=== PATIENT | male | born 1980 | race African-American/Black ===

== ENCOUNTER 2019-08-11 08:00 | Inpatient (IN) | payer MEDICAID ==
[~2019-08-11] VITALS: Ht 177.8 cm; Wt 95.1 kg
[2019-08-11] VITALS (7 sets, daily range): BP systolic 123–191; BP diastolic 49–108; PULSE 71–87; TEMP 97.9–99.1
[~2019-08-11 08:00] MED LIST: ASPIRIN 32325 MG/TAB PO; BACTRIM DS 8001 TAB PO; CEPHALEXIN500 M1 PO; GLUCOPHAGE1000 MG PO; JANUMET 1000 MG1 TA1 PO; LIPITOR 40MG TA40 MG PO; LOPRESSOR 225 MG/TAB PO; LORTAB 5/500 501 TAB PO; MICROZIDE12.5 MG PO; NORCO 325 MG-51 TAB PO; PENICILLIN V250 MG PO; PRINIVIL10 MG PO; ZIAC 5/6.25MG T1 TAB PO
--- NOTE | 2019-08-11 08:57 | NUR ---
Pt up to room 308, admission, allergies, med rec completed. Pt is A&O, independent in room. Pt on room air, breathing even and unlabored. 20G RWR INT IV started w/o complications. Heart RRR, LS clear, JUAN insp wheezing noted. Pulses strong bilaterally. Pt denies any pain, dizziness, SOB, N/V/D. POC discussed, consent for dialysis cath placement signed and on chart. No further needs at this time.
[2019-08-11 08:58] LABS: BASO # 0.1 (0.0-0.2); BASO % 1.2 % (0.0-2.0); EOS # 0.3 (0.0-0.7); EOS % 6.5 % (0-4.0); GRAN # 2.7 (1.4-6.5); GRAN % 52.4 % (42.2-75.2); LYMPH # 1.6 (1.2-3.4); LYMPH % 30.5 % (20.0-51.0); MEAN CELL VOLUME 93 fl (80.0-100.0); MEAN CORPUSCULAR HGB CONC 33 g/dl (33.0-37.0); MEAN PLATELET VOLUME 11.2 fl (7.4-10.4); MONO # 0.5 (0.1-0.6); MONO % 9.2 % (1.7-9.3); PLATELET COUNT 218 K/mm3 (130-400); REDCELL DISTRIBUTION WIDTH-CV 12.8 % (11.5-14.5)
[2019-08-11 09:00] LABS: HEMATOCRIT 29.8 % (42.0-52.0); HEMOGLOBIN 9.7 g/dl (13.5-18.0); MEAN CORPUSCULAR HEMOGLOBIN 30 pg (27.0-31.0)
[2019-08-11 09:11] LABS: ALBUMIN 4.1 gm/dL (3.5-5.0); BILIRUBIN,TOTAL 0.5 mg/dL (0.0-1.0); CALCIUM 6.5 mg/dL (8.4-10.2); CREATININE, serum 9.25 (0.66-1.25); POTASSIUM 5.6 mmol/L (3.4-5.0); TOTAL PROTEIN 7.4 gm/dL (6.4-8.2)
[2019-08-11 09:12] LABS: INR 0.9 (0.8-3.0)
--- NOTE | 2019-08-11 13:10 | NUR ---
Pt down for dialysis cath placement at this time and then hopefully right to dialysis after. Spoke with RIZWANA Jackman from dialysis, she will follow up. Pt received PRN hydralazine, SBP was 180s.
--- NOTE | 2019-08-11 13:59 | NUR ---
LINDEN attempted to contact the patient at [phone] to complete initial intake, no answer. LINDEN contacted, Augustina the dialysis nurse she states the patient is just waking up from anesthesia and about to start dialysis. LINDEN will attempt intake at a later time.
--- NOTE | 2019-08-11 17:48 | NUR ---
Pt back from dialysis, tolerated ok. Pt required dose of hydralazine during dialysis. BP checked for 1600 vitals. SBP upper 160s. Hydralazine is Q4, will check again at 2000 vitals. Pt states his headache has improved, he also ate lunch and BP has decreased significantly since dialysis. Pt also had RIJ dialysis cath placed, site is [facility], covered w/ gauze and tegaderm. Pt hasn't been taking medications for a week or so, so he states. No other concerns expressed at this time.
--- NOTE | 2019-08-11 20:13 | NUR ---
Resting in bed. Assessment complete. Lungs clear. Heart sounds normal. Bowels active x4. Pulses strong throughout. No edema noted at this time. INT right wrist without complications at this time. Right IJ dialysis cath covered with dressing. Dressing CDI. Patient reports 4/10 discomfort at site. Provided with PRN tylenol. Denies other needs. Call light in reach.
[2019-08-11 21:39] LABS: HEPATITIS B SURFACE ANTIBODY <2.0 (()); HEPATITIS B SURFACE ANTIGEN Negative (Negative); HEPATITIS C VIRUS ANTIBODY Negative (Negative)
--- NOTE | 2019-08-11 22:25 | NUR ---
Patient blood pressure continues to be elevated after schedule blood pressure medications. Provided with PRN hydralazine
--- NOTE | 2019-08-11 23:52 | NUR ---
Resting in bed. Denies needs. Reports minimal discomfort with IJ site. Call light in reach
--- NOTE | 2019-08-12 02:00 | NUR ---
Resting in bed asleep. Call light in reach.
[2019-08-12 03:49] VITALS: BP 143/75; PULSE 78; TEMP 98.5
--- NOTE | 2019-08-12 05:48 | NUR ---
Patient had uneventful night. Right IJ remained CDI. Denies needs this AM. Call light in reach.
--- NOTE | 2019-08-12 06:49 | NUR ---
Report given to RIZWANA Molina
[2019-08-12 07:24] VITALS: BP 153/90; PULSE 81; TEMP 99.2
--- NOTE | 2019-08-12 09:31 | NUR ---
Patient was awake and alert in room. Was up to restroom. Did eat breakfast and was getting back in bed. Medications were administered. Did take to dialysis at 0810.
[2019-08-12 09:55] LABS: BASO # 0.1 (0.0-0.2); BASO % 0.9 % (0.0-2.0); EOS # 0.4 (0.0-0.7); EOS % 5.5 % (0-4.0); GRAN # 4.2 (1.4-6.5); GRAN % 62.5 % (42.2-75.2); LYMPH # 1.4 (1.2-3.4); MEAN CELL VOLUME 96 fl (80.0-100.0); MEAN CORPUSCULAR HGB CONC 32 g/dl (33.0-37.0); MEAN PLATELET VOLUME 11.6 fl (7.4-10.4); MONO # 0.7 (0.1-0.6); PLATELET COUNT 179 K/mm3 (130-400); RED BLOOD COUNT 2.89 M/mm3 (4.20-5.60); REDCELL DISTRIBUTION WIDTH-CV 12.9 % (11.5-14.5)
[2019-08-12 09:58] LABS: HEMATOCRIT 27.6 % (42.0-52.0); HEMOGLOBIN 8.8 g/dl (13.5-18.0); MEAN CORPUSCULAR HEMOGLOBIN 30 pg (27.0-31.0)
[2019-08-12 10:10] LABS: ALBUMIN 3.4 gm/dL (3.5-5.0); CALCIUM 6.8 mg/dL (8.4-10.2); CREATININE, serum 6.91 (0.66-1.25); POTASSIUM 4.7 mmol/L (3.4-5.0)
[2019-08-12 12:44] VITALS: BP 152/69; PULSE 71; TEMP 98.3
--- NOTE | 2019-08-12 16:23 | NUR ---
S[employer]ician contacted patient to discuss discharge planning. Patient lives in [place] with his girlfriend, Jessi and their daughter. Patient receives primary care and medications from the [facility]. Patient does not use any DME and reports independence with ADLS. Patient does not have DPOA-HC. Patient plans to return home upon discharge. SW to continue to follow as needed.
[2019-08-12 16:35] VITALS: BP 152/84; PULSE 65; TEMP 98.5
--- NOTE | 2019-08-12 18:57 | NUR ---
Patient in bed with head elevated, call light is within reach. Is eating supper. Did request PRN apap for soreness to dialysis cath site.
[2019-08-12 19:32] VITALS: BP 157/89; PULSE 73; TEMP 99.3
--- NOTE | 2019-08-12 20:00 | NUR ---
Patient assessed at this time. Alert and oriented x 4, and able to make needs known. Reports headache, received PRN APAP at shift change. Peripheral IV to right wrist. Dialysis catheter to right chest. Denies SOB and dyspnea. LS CTA. Respirations even and unlabored. HRR. Capillary refill less than 3 seconds. Non-tenting skin turgor. BSAx4. Abdomen soft and non-tender. Refused colace. No edema. Voices no questions, needs, or concerns at this time. Resting in bed with call light within reach.
[2019-08-12 23:22] VITALS: BP 173/84; PULSE 62; TEMP 98.7
--- NOTE | 2019-08-12 23:42 | NUR ---
BP 173/84. Given PRN Appresoline per orders. Also complaining of headache. Given PRN APAP as requested. Voices no further questions, needs, or concerns at this time. Resting in bed with call light within reach.
[2019-08-13 03:16] VITALS: BP 157/77; PULSE 78; TEMP 98.7
--- NOTE | 2019-08-13 05:46 | NUR ---
Patient voices no further pain or discomfort. Resting in bed with eyes closed. Call light within reach.
[2019-08-13 07:12] VITALS: BP 147/80; PULSE 75; TEMP 99
--- NOTE | 2019-08-13 08:20 | NUR ---
Patient is awake and alert, is in bed with head elevated. Just finished breakfast. Did inquire about pain and patient stated he had only slight pain to the dialysis cath site but nothing to need intervention for. He did have questions regarding dialysis fistula and did visit with him regarding this and offered written information, he did accept. He has no other needs at this time. Call light and personal items are within reach.
[2019-08-13 11:36] VITALS: BP 151/71; PULSE 66; TEMP 98.4
--- NOTE | 2019-08-13 12:35 | NUR ---
First visit from the editor greeting card. No needs right now.
--- NOTE | 2019-08-13 15:30 | NUR ---
Call placed to Dr. Meyer and left message requesting call back. Received call back from associate from his office and notified her surgery time for patient.
[2019-08-13 16:12] VITALS: BP 174/88; PULSE 66; TEMP 98.4
--- NOTE | 2019-08-13 19:00 | NUR ---
Patient is resting in bed watching TV. Did administer PRN hydralazine for elevated pressure. Consent was taken to patient and procedure explained to patient and consent was signed. No other questions verbalized. Call light and personal items are within reach.
[2019-08-13 19:10] VITALS: BP 150/82; PULSE 73; TEMP 98.3
--- NOTE | 2019-08-13 19:30 | NUR ---
Patient assessed at this time. Alert and oriented x 4, and able to make needs known. Reports level 4 pain to dialysis catheter site. Dressing to area CDI. Sutures to area CDI. Given PRN APAP as requested for pain. Peripheral IV to left hand. Denies SOB and dyspnea. LS CTA. Respirations even and unlabored. HRR. Capillary refill less than 3 seconds. Non-tenting skin turgor. BSAx4. Abdomen soft and non-tender. Refused colace. No edema. Continuing to collect 24 hr urine at this time. Reminded of being NPO for fistula being placed tomorrow. Voices understanding. Voices no questions, needs, or concerns at this time. Resting in bed with call light within reach.
[2019-08-13 23:20] VITALS: BP 173/84; PULSE 65; TEMP 98.4
--- NOTE | 2019-08-14 00:24 | NUR ---
BP 173/84. Given PRN Appresoline at this time.
[2019-08-14 03:40] VITALS: BP 141/73; PULSE 74; TEMP 98.9
--- NOTE | 2019-08-14 05:45 | NUR ---
Patient has been resting in bed. Voices no questions, needs, or concerns at this time. No further complaints of pain or discomfort voiced at this time. Call light is within reach.
--- NOTE | 2019-08-14 05:45 | NUR ---
24 hour urine complete and taken to lab.
[2019-08-14 06:10] LABS: URINE TOTAL VOLUME 900 mL
[2019-08-14 08:23] VITALS: BP 169/84; PULSE 68; TEMP 98.3
--- NOTE | 2019-08-14 08:50 | NUR ---
Pt to OR for procedure via bed.
[2019-08-14 10:35] VITALS: BP 180/88; PULSE 73; TEMP 98.4
[2019-08-14 10:50] VITALS: BP 169/96; PULSE 79; TEMP 98.4
--- NOTE | 2019-08-14 10:51 | NUR ---
PT NPO SINCE MIDNIGHT. LEFT UBIT FOR FISTULA PLACEMENT @ 0900. SBP NOTED TO BE 169. MEDS HELD FOR PROCEDURE. RETURNED TO UNIT @ 1030. VS 180/88 P73 O2 98% RA T 98.4. DENIES PAIN. SURGICAL SITE TO RT WRIST CLEAN, DRY AND INTACT DRESSING PRESENT. PT REPORTS MINIMAL PAIN TO SITE. SPOKE TO DIALYSIS NURSE AND OK FOR PT TO RECEIVE MORNING MEDS, EAT SANDWICH TRAY AND THEN GO DOWN TO DIALYSIS. 0800 PHOSLO GIVEN WITH SANDWICH @ 1045. IV TO LT HAND INTACT. POST-OP VITALS ONGOING
--- NOTE | 2019-08-14 11:05 | NUR ---
THRILL AND BRUIT NOTED TO RT WRIST AVF SITE
--- NOTE | 2019-08-14 11:24 | NUR ---
Pt to Express unit for dialysis via .
[2019-08-14 11:42] LABS: BASO # 0.1 (0.0-0.2); BASO % 1.1 % (0.0-2.0); EOS # 0.4 (0.0-0.7); EOS % 6.7 % (0-4.0); GRAN # 3.7 (1.4-6.5); GRAN % 59.5 % (42.2-75.2); HEMOGLOBIN 10.3 g/dl (13.5-18.0); LYMPH # 1.5 (1.2-3.4); LYMPH % 23.8 % (20.0-51.0); MEAN CELL VOLUME 94 fl (80.0-100.0); MEAN CORPUSCULAR HEMOGLOBIN 31 pg (27.0-31.0); MEAN CORPUSCULAR HGB CONC 33 g/dl (33.0-37.0); MEAN PLATELET VOLUME 11.1 fl (7.4-10.4); MONO # 0.5 (0.1-0.6); MONO % 8.6 % (1.7-9.3); PLATELET COUNT 195 K/mm3 (130-400); RED BLOOD COUNT 3.37 M/mm3 (4.20-5.60); REDCELL DISTRIBUTION WIDTH-CV 12.7 % (11.5-14.5)
[2019-08-14 11:43] LABS: HEMATOCRIT 31.6 % (42.0-52.0)
[2019-08-14 12:06] LABS: CALCIUM 8.2 mg/dL (8.4-10.2); CREATININE, serum 7.64 (0.66-1.25); PHOSPHOROUS 4.7 mg/dL (2.5-4.5); POTASSIUM 4.6 mmol/L (3.4-5.0)
[2019-08-14 12:06] LABS: CREATININE, serum 7.64 (0.66-1.25); URINE CREATININE CLEARANCE 9.2 mL/min (97-137)
[2019-08-14 14:35] VITALS: BP 162/88; PULSE 73
--- NOTE | 2019-08-14 14:45 | NUR ---
pt discharged to home @ 1440 and pharmacy picking tech by girlfriend. IV to LT hand dc'd no issues. denies LUNA, CP, N/V, vertigo. ambulated well. rt wrist AVF site intact. DC instructions reviewed. no questions at this time.next dialysis scheduled for Saturday and pt reports having means of transport. given PRN PO hydralazine at ischarge due to elevated SBP despite surgery, dialysis and medication. no other concerns reported at this time
== END 2019-08-14 14:40 | disposition home or self-care (01) | DRG 673 ==
LOC: MEDICAL 08:00
PROVIDERS: Surgery; ADMIT Internal Medicine Nephrology
PROC: 5A1D70Z Performance of Urinary Filtration, Intermittent, Less than 6 Hours Per Day (ICD-10-PCS; 2019-08-14)
PROC: 031B0ZF Bypass Right Radial Artery to Lower Arm Vein, Open Approach (ICD-10-PCS; principal; 2019-08-14 09:00)
DX: I12.0 Hypertensive chronic kidney disease with stage 5 chronic kidney disease or end stage renal disease (principal); N18.6 End stage renal disease; E11.22 Type 2 diabetes mellitus with diabetic chronic kidney disease; F17.200 Nicotine dependence, unspecified, uncomplicated; E78.5 Hyperlipidemia, unspecified; M10.9 Gout, unspecified; E83.51 Hypocalcemia
CPT/HCPCS: J0690; J1644; J2250; J2405; J2704; J2916; J3010; J7030; Q5105

== ENCOUNTER → 2019-09-01 | Outpatient (CLI) | payer MEDICAID | LOC: ZCOL.LAB 17:53 | DX: Z11.59 Encounter for screening for other viral diseases (principal); N18.6 End stage renal disease ==

== ENCOUNTER → 2020-11-07 | Outpatient (CLI) | payer MEDICARE, MEDICAID ==
--- NOTE | 2020-10-28 11:59 | NUR ---
left instructions and return call number as a msg
[~2020-11-07] VITALS: Ht 177.8 cm; Wt 88.1 kg
[2020-11-07 07:57] VITALS: BP 166/90; PULSE 90
[2020-11-07 09:20] VITALS: BP 151/88; PULSE 79
== END ==
LOC: COL.RAD 11-02 07:15
DX: Z49.01 Encounter for fitting and adjustment of extracorporeal dialysis catheter (principal)